=== PATIENT | female | born 1980 | race Caucasian/White ===

== ENCOUNTER 2017-02-11 19:05 | Emergency (ER) | payer BC ==
[~2017-02-11] VITALS: Ht 160 cm; Wt 55.3 kg
[2017-02-11 19:08] VITALS: BP 127/76
[2017-02-11 19:20] VITALS: BP 107/77
[2017-02-11] MEDS ORDERED: SERT100T PO (19:26)
[2017-02-11] MEDS ORDERED: SYN.05 PO (19:26)
[2017-02-11] MEDS ORDERED: METF500T PO (19:26)
--- NOTE | 2017-02-11 19:29 | NUR ---
TO ER BED 3
--- NOTE | 2017-02-11 19:45 | NUR ---
CAME IN WITH C/O NAUSEA , S/P DRINKING VODKA, HALF BOTTLE.SHES DEPRESSED., ALERT AWAKE, ORIENTED.
--- NOTE | 2017-02-11 20:54 | NUR ---
Patient being evaluated by physician at bedside.
[2017-02-11 21:08] VITALS: BP 119/81
--- NOTE | 2017-02-11 21:08 | NUR ---
Patient discharged with v/s stable. Written and verbal after care instructions given and explained. Patient verbalized understanding. Ambulatory with steady gait. All questions addressed prior to discharge. Advised to follow up with PMD.
== END 2017-02-11 21:08 | disposition home or self-care (01) ==
LOC: MED 19:05
DX: F10.129 Alcohol abuse with intoxication, unspecified (principal); Z79.84 Long term (current) use of oral hypoglycemic drugs; Z79.899 Other long term (current) drug therapy
CPT/HCPCS: 81025; 99283